=== PATIENT | female | born 1955 | race Caucasian/White ===

== ENCOUNTER 2021-03-05 12:23 | Inpatient (IN) | payer MEDICAID ==
[~2021-03-05] VITALS: Ht 162.6 cm; Wt 54.4 kg
[2021-03-05] MEDS ORDERED: SODIUM CHLORIDE 0.9% 1,000 ML IV ONE (13:15)
[2021-03-05 13:34] LABS: BASOPHILS % 0.4 % (0.0-2.0); EOSINOPHILS % 0.5 % (0.0-5.0); HEMATOCRIT. 39.7 % (36.0-48.0); HEMOGLOBIN. 13.1 g/dL (12.0-16.0); LYMPHOCYTES % 13.3 % (20.0-50.0); MEAN CORPUSCULAR HEMOGLOBIN 27.6 pg (28.0-32.0); MEAN CORPUSCULAR VOLUME 83.7 fL (81.0-99.0); MEAN PLATELET VOLUME 8.2 fl (7.4-10.4); MONOCYTES % 5.2 % (2.0-8.0); NEUTROPHILS % 80.6 % (40.0-76.0); PLATELET 495 x1000/uL (130-400); RED BLOOD CELL COUNT 4.74 mill/uL (4.2-5.4); RED CELL DISTRIBUTION WIDTH 15.5 % (11.6-14.6)
[2021-03-05 13:40] LABS: CHLORIDE 100 mEq/L (98-107)
[2021-03-05 13:45] LABS: INR 0.9; PROTHROMBIN TIME 9.8 sec (9.6-11.0)
[2021-03-05] MEDS ORDERED: ASPIRIN 325MG EC TABLET PO ONE (14:15)
[2021-03-05] MEDS ORDERED: CEFTRIAXONE 1 G PREMIX 50 ML IV ONE (14:30)
[2021-03-05 15:11] LABS: CLARITY URINE TURBID (CLEAR); COLOR URINE YELLOW (YELLOW); KETONES URINE NEGATIVE (NEGATIVE); LEUKOCYTE ESTERASE URINE 3+ (NEGATIVE); NITRITE URINE POSITIVE (NEGATIVE); OCCULT BLOOD URINE 2+ (NEGATIVE); PROTEIN URINE 1+ (NEGATIVE); SPECIFIC GRAVITY URINE 1.022 (1.005-1.030); UROBILINOGEN URINE 0.2 E.U./dL (0.2-1.0)
[2021-03-05 17:00] VITALS: BP 125/75
[2021-03-05] MEDS ORDERED: DEXTROSE 50% WATER 50ML SYRINGE IV PRN ×2 (17:15)
[2021-03-05] MEDS ORDERED: ACETAMINOPHEN 325MG TABLET PO PRN ×2 (17:30→20:15)
[2021-03-05] MEDS ORDERED: AMLO10TA80 MT (17:43)
[2021-03-05] MEDS ORDERED: CLON1PAT12 TP (17:43)
[2021-03-05] MEDS ORDERED: METF-415 MT (17:43)
[2021-03-05] MEDS ORDERED: LORA-249 MT (17:43)
[2021-03-05 18:05] VITALS: BP 125/75
[2021-03-05] MEDS: ENOXAPARIN 40MG/0.4ML SYR SUBCUT SCH (18:56)
[2021-03-05] MEDS: INSULIN LISPRO 100 UNITS/ML SUBCUT SCH ×2 (19:01→21:00)
[2021-03-05 20:00] VITALS: BP 126/80
[2021-03-05] MEDS ORDERED: DOCUSATE SODIUM 100MG CAPSULE PO PRN (20:15)
[2021-03-05] MEDS ORDERED: NITROGLYCERIN 0.4MG TABLET SL SL PRN (20:15)
[2021-03-05] MEDS ORDERED: MAGNESIUM/ALUMINUM HYDROXIDE/SIMETHICONE 30ML UDC PO PRN (20:15)
[2021-03-05] MEDS ORDERED: IPRATROPIUM/ALBUTEROL 0.5-3(2.5)MG/3ML NEB NEB PRN (20:15)
[2021-03-05] MEDS ORDERED: GUAIFENESIN 200MG/10ML SUGAR FREE UDC PO PRN (20:15)
[2021-03-05] MEDS ORDERED: ONDANSETRON HCL 4MG/2ML INJ IV PRN (20:15)
[2021-03-05 20:50] LABS: T4 FREE 1.47 ng/dL (0.76-1.46)
[2021-03-05] MEDS: ASCORBIC ACID 500 MG TABLET PO SCH (21:04)
[2021-03-05] MEDS: FAMOTIDINE 20MG TABLET PO SCH (21:05)
[2021-03-05 21:14] LABS: VITAMIN B12 SERUM > 2000.0 pg/mL (211-911)
[2021-03-05] MEDS: BLOOD SUGAR DIAGNOSTIC STRIP TEST SCH (21:37)
[2021-03-05 21:50] LABS: *AMPHETAMINES SCREEN URINE NEGATIVE (NEGATIVE); *BARBITURATES SCREEN URINE NEGATIVE (NEGATIVE); *BENZODIAZEPINES SCREEN URINE NEGATIVE (NEGATIVE); *COCAINE SCREEN URINE NEGATIVE (NEGATIVE); METHADONE URINE SCREEN NEGATIVE (NEGATIVE); OPIATES URINE SCREEN NEGATIVE (NEGATIVE)
[2021-03-05 21:51] LABS: CANNABINOID URINE SCREEN NEGATIVE (NEGATIVE); PHENCYCLIDINE URINE SCREEN NEGATIVE (NEGATIVE)
[2021-03-05 22:00] VITALS: BP 124/78
[2021-03-05 22:06] LABS: CREATINE KINASE 19 IU/L (26-192)
[2021-03-05 22:07] LABS: CREATINE KINASE MB FRACTION < 1.0 ng/mL (0.5-3.6)
[2021-03-06] VITALS (8 sets, daily range): BP systolic 137–170; BP diastolic 66–80
[2021-03-06 06:15] LABS: CHLORIDE 105 mEq/L (98-107)
[2021-03-06 06:23] LABS: BASOPHILS % 0.6 % (0.0-2.0); EOSINOPHILS % 1.3 % (0.0-5.0); HEMATOCRIT. 37.3 % (36.0-48.0); HEMOGLOBIN. 12.6 g/dL (12.0-16.0); LYMPHOCYTES % 20.9 % (20.0-50.0); MEAN CORPUSCULAR HEMOGLOBIN 28.4 pg (28.0-32.0); MEAN CORPUSCULAR VOLUME 84.2 fL (81.0-99.0); MEAN PLATELET VOLUME 8.2 fl (7.4-10.4); MONOCYTES % 5.9 % (2.0-8.0); NEUTROPHILS % 71.3 % (40.0-76.0); PLATELET 400 x1000/uL (130-400); RED BLOOD CELL COUNT 4.43 mill/uL (4.2-5.4); RED CELL DISTRIBUTION WIDTH 15.3 % (11.6-14.6)
[2021-03-06 06:26] LABS: AMYLASE 22 IU/L (25-115); PHOSPHORUS 3.7 mg/dL (2.5-4.9)
[2021-03-06 06:27] LABS: LDL CHOLESTEROL 112 mg/dL (5-100)
[2021-03-06 06:28] LABS: CREATINE KINASE 17 IU/L (26-192)
[2021-03-06 06:29] LABS: CREATINE KINASE MB FRACTION < 1.0 ng/mL (0.5-3.6)
[2021-03-06 06:30] LABS: HDL CHOLESTEROL 55 mg/dL (40-59)
[2021-03-06] MEDS: BLOOD SUGAR DIAGNOSTIC STRIP TEST SCH ×4 (06:55→21:21)
[2021-03-06] MEDS: INSULIN LISPRO 100 UNITS/ML SUBCUT SCH ×4 (07:03→21:22)
[2021-03-06] MEDS: FAMOTIDINE 20MG TABLET PO SCH ×2 (09:08→21:21)
[2021-03-06] MEDS: ASCORBIC ACID 500 MG TABLET PO SCH ×2 (09:08→21:21)
[2021-03-06] MEDS: CLOPIDOGREL 75MG TABLET PO SCH (09:09)
[2021-03-06] MEDS: AMLODIPINE 10MG TABLET PO SCH (09:09)
[2021-03-06] MEDS: ZINC SULFATE 220 MG ( 50 ) CAPSULE PO SCH (09:09)
[2021-03-06] MEDS: CEFTRIAXONE 1,000 MG in DEXTROSE 5% WATER 50 ML IV SCH (15:20)
[2021-03-06] MEDS: ENOXAPARIN 40MG/0.4ML SYR SUBCUT SCH (18:40)
[2021-03-06] MEDS: ZOLPIDEM TARTRATE 5MG TABLET PO PRN (21:21)
[2021-03-07] VITALS: BP 143/68
[2021-03-07 04:00] VITALS: BP 136/94
[2021-03-07] MEDS: BLOOD SUGAR DIAGNOSTIC STRIP TEST SCH ×4 (05:21→21:00)
[2021-03-07] MEDS: INSULIN LISPRO 100 UNITS/ML SUBCUT SCH ×4 (06:20→21:55)
[2021-03-07 08:00] VITALS: BP 151/72
[2021-03-07] MEDS: ZINC SULFATE 220 MG ( 50 ) CAPSULE PO SCH (08:50)
[2021-03-07] MEDS: AMLODIPINE 10MG TABLET PO SCH (08:50)
[2021-03-07] MEDS: CLOPIDOGREL 75MG TABLET PO SCH (08:50)
[2021-03-07] MEDS: FAMOTIDINE 20MG TABLET PO SCH ×2 (08:50→21:50)
[2021-03-07] MEDS: ASCORBIC ACID 500 MG TABLET PO SCH ×2 (08:50→21:50)
[2021-03-07] MEDS: ACETAMINOPHEN 325MG TABLET PO PRN (10:47)
[2021-03-07] MEDS: LORAZEPAM 0.5MG TABLET PO PRN (10:52)
[2021-03-07 12:00] VITALS: BP 149/67
[2021-03-07] MEDS: CEFTRIAXONE 1,000 MG in DEXTROSE 5% WATER 50 ML IV SCH (14:50)
[2021-03-07 16:00] VITALS: BP 164/74
[2021-03-07] MEDS: CLONIDINE 0.1MG TABLET PO PRN (17:08)
[2021-03-07] MEDS: ENOXAPARIN 40MG/0.4ML SYR SUBCUT SCH (17:08)
[2021-03-07 20:00] VITALS: BP 100/58
[2021-03-07] MEDS: ZOLPIDEM TARTRATE 5MG TABLET PO PRN (21:50)
[2021-03-08] VITALS: BP 102/60
[2021-03-08 04:00] VITALS: BP 94/42
[2021-03-08] MEDS: INSULIN LISPRO 100 UNITS/ML SUBCUT SCH ×4 (06:31→22:32)
[2021-03-08] MEDS: BLOOD SUGAR DIAGNOSTIC STRIP TEST SCH ×4 (06:31→21:00)
[2021-03-08 08:00] VITALS: BP 143/63
[2021-03-08] MEDS: FAMOTIDINE 20MG TABLET PO SCH ×2 (09:07→22:33)
[2021-03-08] MEDS: CLOPIDOGREL 75MG TABLET PO SCH (09:08)
[2021-03-08] MEDS: ZINC SULFATE 220 MG ( 50 ) CAPSULE PO SCH (09:08)
[2021-03-08] MEDS: ASCORBIC ACID 500 MG TABLET PO SCH ×2 (09:08→22:33)
[2021-03-08] MEDS: AMLODIPINE 10MG TABLET PO SCH (09:08)
[2021-03-08] MEDS: LORAZEPAM 0.5MG TABLET PO PRN (09:51)
[2021-03-08 12:00] VITALS: BP 119/77
[2021-03-08 16:00] VITALS: BP 110/70
[2021-03-08] MEDS: CEFTRIAXONE 1,000 MG in DEXTROSE 5% WATER 50 ML IV SCH (16:02)
[2021-03-08] MEDS: ACETAMINOPHEN 325MG TABLET PO PRN (16:02)
[2021-03-08] MEDS: ENOXAPARIN 40MG/0.4ML SYR SUBCUT SCH (17:17)
[2021-03-08 20:00] VITALS: BP 150/67
[2021-03-08] MEDS: ZOLPIDEM TARTRATE 5MG TABLET PO PRN (22:33)
[2021-03-09] VITALS: BP 121/70
[2021-03-09 04:00] VITALS: BP 147/57
[2021-03-09] MEDS: BLOOD SUGAR DIAGNOSTIC STRIP TEST SCH ×4 (07:02→21:00)
[2021-03-09] MEDS: INSULIN LISPRO 100 UNITS/ML SUBCUT SCH ×4 (07:04→21:36)
[2021-03-09 08:00] VITALS: BP 135/65
[2021-03-09] MEDS: FAMOTIDINE 20MG TABLET PO SCH ×2 (09:37→21:36)
[2021-03-09] MEDS: AMLODIPINE 10MG TABLET PO SCH (09:37)
[2021-03-09] MEDS: ZINC SULFATE 220 MG ( 50 ) CAPSULE PO SCH (09:37)
[2021-03-09] MEDS: ASCORBIC ACID 500 MG TABLET PO SCH ×2 (09:37→21:36)
[2021-03-09] MEDS: CLOPIDOGREL 75MG TABLET PO SCH (09:37)
[2021-03-09] MEDS: LORAZEPAM 0.5MG TABLET PO PRN (09:45)
[2021-03-09 12:00] VITALS: BP 155/65
[2021-03-09] MEDS: ACETAMINOPHEN 325MG TABLET PO PRN ×2 (12:15→21:37)
[2021-03-09] MEDS: CEFTRIAXONE 1,000 MG in DEXTROSE 5% WATER 50 ML IV SCH (14:12)
[2021-03-09 16:00] VITALS: BP 135/63
[2021-03-09] MEDS: ENOXAPARIN 40MG/0.4ML SYR SUBCUT SCH (17:19)
[2021-03-09 20:31] VITALS: BP 162/78
[2021-03-09] MEDS: ZOLPIDEM TARTRATE 5MG TABLET PO PRN (21:36)
[2021-03-09] MEDS: CLONIDINE 0.1MG TABLET PO PRN (21:40)
[2021-03-10 00:04] VITALS: BP 116/57
[2021-03-10 04:00] VITALS: BP 146/55
[2021-03-10] MEDS: BLOOD SUGAR DIAGNOSTIC STRIP TEST SCH ×3 (06:35→16:45)
[2021-03-10] MEDS: INSULIN LISPRO 100 UNITS/ML SUBCUT SCH ×3 (06:39→17:15)
[2021-03-10 08:00] VITALS: BP 132/70
[2021-03-10] MEDS: ASCORBIC ACID 500 MG TABLET PO SCH (08:46)
[2021-03-10] MEDS: FAMOTIDINE 20MG TABLET PO SCH (08:46)
[2021-03-10] MEDS: CLOPIDOGREL 75MG TABLET PO SCH (08:46)
[2021-03-10] MEDS: ZINC SULFATE 220 MG ( 50 ) CAPSULE PO SCH (08:46)
[2021-03-10] MEDS: AMLODIPINE 10MG TABLET PO SCH (08:47)
[2021-03-10] MEDS ORDERED: FLUCONAZOLE 200MG/100ML PREMIX IV ONE (09:30)
[2021-03-10] MEDS ORDERED: MAGNESIUM OXIDE 400MG TABLET PO NR (10:30)
[2021-03-10] MEDS ORDERED: FLUCONAZOLE 200 MG/100ML BAG 100 ML IV SCH (11:00)
[2021-03-10] MEDS: LORAZEPAM 0.5MG TABLET PO PRN (12:40)
[2021-03-10 14:48] VITALS: BP 150/73
[2021-03-10] MEDS: ENOXAPARIN 40MG/0.4ML SYR SUBCUT SCH (18:00)
== END 2021-03-10 18:00 | disposition home or self-care (01) | DRG 720 ==
LOC: ER 12:23 → 5WST 14:46 → EDBEDREQ 14:52 → ENRESERV 15:07
PROVIDERS: ADMIT Internal Medicine; ATTEND Internal Medicine
DX: A41.9 Sepsis, unspecified organism (principal); G82.20 Paraplegia, unspecified; L89.306 Pressure-induced deep tissue damage of unspecified buttock; E87.1 Hypo-osmolality and hyponatremia; L89.896 Pressure-induced deep tissue damage of other site; N39.0 Urinary tract infection, site not specified; R29.810 Facial weakness; E11.9 Type 2 diabetes mellitus without complications; I10 Essential (primary) hypertension; Z74.01 Bed confinement status; Z79.02 Long term (current) use of antithrombotics/antiplatelets; Z79.4 Long term (current) use of insulin; Z79.899 Other long term (current) drug therapy; I69.954 Hemiplegia and hemiparesis following unspecified cerebrovascular disease affecting left non-dominant side; R33.9 Retention of urine, unspecified; Z96.0 Presence of urogenital implants
CPT/HCPCS: 36415; 70551; 71045; 80053; 80061; 80305; 81003; 82040; 82150; 82550; 82553; 82607; 82746; 82962; 83036; 83540; 83550; 83735; 84100; 84134; 84439; 84443; 84484; 85025; 87106; 93005; 93970; 97112; 97162; 97166; 97530; 99291; A6261; J0696; J1450; J1650; J1815; J7030; J7060; A4315

== ENCOUNTER 2021-11-30 13:38 | Inpatient (IN) | payer MEDICARE, MEDICAID ==
[~2021-11-30] VITALS: Ht 157.5 cm; Wt 69.4 kg
[~2021-11-30 13:38] MED LIST: AMLO10TA80 MT; CLON1PAT12 TP; LORA-249 MT; METF-415 MT
[2021-11-30 14:42] LABS: BASOPHILS % 0.7 % (0.0-2.0); EOSINOPHILS % 0.6 % (0.0-5.0); HEMATOCRIT. 38.1 % (36.0-48.0); HEMOGLOBIN. 12.6 g/dL (12.0-16.0); LYMPHOCYTES % 21.5 % (20.0-50.0); MEAN CORPUSCULAR HEMOGLOBIN 27.7 pg (28.0-32.0); MEAN CORPUSCULAR VOLUME 83.8 fL (81.0-99.0); MONOCYTES % 5.2 % (2.0-8.0); PLATELET 300 x1000/uL (130-400); RED BLOOD CELL COUNT 4.55 mill/uL (4.2-5.4); RED CELL DISTRIBUTION WIDTH 13.5 % (11.6-14.6)
[2021-11-30 14:52] LABS: CHLORIDE 107 mEq/L (98-107)
[2021-11-30 14:56] LABS: ETHANOL BLOOD < 10 mg/dL
[2021-11-30 15:00] LABS: CREATINE KINASE 60 IU/L (26-192)
[2021-11-30] MEDS ORDERED: DEXTROSE 50% WATER 50ML SYRINGE IV PRN (17:00)
[2021-11-30] MEDS ORDERED: CLONIDINE 0.1MG TABLET PO PRN (17:00)
[2021-11-30] MEDS ORDERED: GUAIFENESIN 200MG/10ML SUGAR FREE UDC PO PRN (17:00)
[2021-11-30] MEDS ORDERED: ACETAMINOPHEN 325MG TABLET PO PRN (17:00)
[2021-11-30] MEDS ORDERED: DOCUSATE SODIUM 100MG CAPSULE PO PRN (17:00)
[2021-11-30] MEDS ORDERED: IPRATROPIUM/ALBUTEROL 0.5-3(2.5)MG/3ML NEB HHN PRN (17:00)
[2021-11-30] MEDS ORDERED: LORAZEPAM 2MG/ML CPJ IV PRN (17:00)
[2021-11-30] MEDS ORDERED: HYDRALAZINE 20MG/ML VIAL IV PRN (17:00)
[2021-11-30] MEDS ORDERED: DIPHENHYDRAMINE 50MG/ML VIAL IV PRN (17:00)
[2021-11-30] MEDS ORDERED: HYDROCODONE/ACETAMINOPHEN 5/325MG TABLET PO PRN (17:00)
[2021-11-30] MEDS ORDERED: MAGNESIUM/ALUMINUM HYDROXIDE/SIMETHICONE 30ML UDC PO PRN (17:00)
[2021-11-30] MEDS ORDERED: MORPHINE SULFATE 2 MG/ML CPJ (NOT FOR IM USE) IV PRN (17:00)
[2021-11-30] MEDS ORDERED: ONDANSETRON HCL 4MG/2ML INJ IV PRN (17:00)
[2021-11-30] MEDS: BLOOD SUGAR DIAGNOSTIC STRIP TEST SCH ×2 (17:43→21:06)
[2021-11-30] MEDS: ENOXAPARIN 40MG/0.4ML SYR SUBCUT SCH (17:50)
[2021-11-30] MEDS ORDERED: ASPIRIN 81MG TABLET PO ONE (20:00)
[2021-11-30 20:39] LABS: CLARITY URINE CLEAR (CLEAR); COLOR URINE YELLOW (YELLOW); KETONES URINE NEGATIVE (NEGATIVE); LEUKOCYTE ESTERASE URINE NEGATIVE (NEGATIVE); NITRITE URINE NEGATIVE (NEGATIVE); OCCULT BLOOD URINE NEGATIVE (NEGATIVE); PH URINE 6.5 (4.5-8.0); PROTEIN URINE NEGATIVE (NEGATIVE); SPECIFIC GRAVITY URINE 1.012 (1.005-1.030); UROBILINOGEN URINE 0.2 E.U./dL (0.2-1.0)
[2021-11-30 20:59] LABS: *AMPHETAMINES SCREEN URINE NEGATIVE (NEGATIVE); *BARBITURATES SCREEN URINE NEGATIVE (NEGATIVE); *BENZODIAZEPINES SCREEN URINE NEGATIVE (NEGATIVE); CANNABINOID URINE SCREEN PRESUMTIVE POSITIVE (NEGATIVE); PHENCYCLIDINE URINE SCREEN NEGATIVE (NEGATIVE)
[2021-11-30 21:00] LABS: *COCAINE SCREEN URINE NEGATIVE (NEGATIVE); METHADONE URINE SCREEN NEGATIVE (NEGATIVE); OPIATES URINE SCREEN NEGATIVE (NEGATIVE)
[2021-11-30] MEDS: SODIUM CHLORIDE 0.9% INJ 3ML FLUSH IVF SCH (22:00)
[2021-11-30 22:12] LABS: CREATINE KINASE 45 IU/L (26-192); CREATINE KINASE MB FRACTION < 1.0 ng/mL (0.5-3.6)
[2021-12-01 04:10] VITALS: BP 148/93
[2021-12-01 04:26] LABS: BASOPHILS % 0.5 % (0.0-2.0); EOSINOPHILS % 1.8 % (0.0-5.0); HEMATOCRIT. 35.4 % (36.0-48.0); HEMOGLOBIN. 11.6 g/dL (12.0-16.0); MEAN CORPUSCULAR HEMOGLOBIN 27.7 pg (28.0-32.0); MEAN CORPUSCULAR VOLUME 84.4 fL (81.0-99.0); MEAN PLATELET VOLUME 8.6 fl (7.4-10.4); MONOCYTES % 7.1 % (2.0-8.0); NEUTROPHILS % 49.6 % (40.0-76.0); PLATELET 300 x1000/uL (130-400); RED CELL DISTRIBUTION WIDTH 13.3 % (11.6-14.6)
[2021-12-01] MEDS ORDERED: PRAV80TA21 MT (04:56)
[2021-12-01] MEDS ORDERED: ASPI-1497 MT (04:57)
[2021-12-01] MEDS ORDERED: PARO10TA87 MT (05:00)
[2021-12-01 05:25] LABS: CHLORIDE 108 mEq/L (98-107)
[2021-12-01 05:36] LABS: CREATINE KINASE 35 IU/L (26-192)
[2021-12-01 05:38] LABS: CREATINE KINASE MB FRACTION < 1.0 ng/mL (0.5-3.6)
[2021-12-01] MEDS: BLOOD SUGAR DIAGNOSTIC STRIP TEST SCH ×4 (06:42→21:31)
[2021-12-01] MEDS: SODIUM CHLORIDE 0.9% INJ 3ML FLUSH IVF SCH ×3 (06:44→21:36)
[2021-12-01] MEDS: INSULIN LISPRO 100 UNITS/ML SUBCUT SCH ×4 (07:50→21:48)
[2021-12-01 08:07] VITALS: BP 143/47
[2021-12-01] MEDS: ASPIRIN 81MG EC TABLET PO SCH (10:21)
[2021-12-01 11:42] VITALS: BP 143/65
[2021-12-01] MEDS ORDERED: PNEUMOCOCCAL 23-VAL P-SAC VAC 0.5 ML IM ONE (15:00)
[2021-12-01 16:05] VITALS: BP 147/63
[2021-12-01] MEDS: ENOXAPARIN 40MG/0.4ML SYR SUBCUT SCH (18:10)
[2021-12-01] MEDS ORDERED: CLONIDINE 0.1MG TABLET PO PRN (18:45)
[2021-12-01 20:00] VITALS: BP 158/72
[2021-12-02] VITALS: BP 127/67
[2021-12-02 04:00] VITALS: BP 122/62
[2021-12-02] MEDS: SODIUM CHLORIDE 0.9% INJ 3ML FLUSH IVF SCH ×3 (05:36→21:50)
[2021-12-02] MEDS: BLOOD SUGAR DIAGNOSTIC STRIP TEST SCH ×4 (06:28→21:49)
[2021-12-02 08:00] VITALS: BP 139/63
[2021-12-02] MEDS: INSULIN LISPRO 100 UNITS/ML SUBCUT SCH ×4 (08:00→21:55)
[2021-12-02] MEDS: ASPIRIN 81MG EC TABLET PO SCH (10:25)
[2021-12-02 12:00] VITALS: BP 128/60
[2021-12-02 16:00] VITALS: BP 133/62
[2021-12-02] MEDS: ENOXAPARIN 40MG/0.4ML SYR SUBCUT SCH (19:54)
[2021-12-02 20:00] VITALS: BP 148/71
[2021-12-03] VITALS: BP 118/58
[2021-12-03 04:00] VITALS: BP 130/57
[2021-12-03] MEDS: SODIUM CHLORIDE 0.9% INJ 3ML FLUSH IVF SCH ×3 (06:00→21:48)
[2021-12-03] MEDS: BLOOD SUGAR DIAGNOSTIC STRIP TEST SCH ×4 (07:24→21:00)
[2021-12-03] MEDS: INSULIN LISPRO 100 UNITS/ML SUBCUT SCH ×4 (07:24→21:00)
[2021-12-03 08:00] VITALS: BP 131/59
[2021-12-03] MEDS: ASPIRIN 81MG EC TABLET PO SCH (09:43)
[2021-12-03] MEDS ORDERED: NALOXONE HCL 0.4MG/ML VIAL IV PRN (15:15)
[2021-12-03] MEDS: ENOXAPARIN 40MG/0.4ML SYR SUBCUT SCH (17:42)
[2021-12-03 20:00] VITALS: BP 154/88
[2021-12-04] VITALS: BP 150/55
[2021-12-04 04:00] VITALS: BP 127/54
[2021-12-04] MEDS: SODIUM CHLORIDE 0.9% INJ 3ML FLUSH IVF SCH ×3 (05:04→21:46)
[2021-12-04] MEDS: INSULIN LISPRO 100 UNITS/ML SUBCUT SCH ×4 (07:50→21:00)
[2021-12-04] MEDS: BLOOD SUGAR DIAGNOSTIC STRIP TEST SCH ×4 (08:09→21:00)
[2021-12-04 08:18] VITALS: BP 129/52
[2021-12-04] MEDS: ASPIRIN 81MG EC TABLET PO SCH (09:10)
[2021-12-04] MEDS ORDERED: MIDAZOLAM HCL 5 MG/5 ML VIAL ONE (09:41)
[2021-12-04] MEDS ORDERED: TETRACAINE/BENZOCAINE/BUTAMBEN 20 GM SPRAY MM ONE (09:41)
[2021-12-04] MEDS ORDERED: FENTANYL CITRATE/PF 50MCG/ML 2ML VIAL ONE (09:41)
[2021-12-04] MEDS ORDERED: LIDOCAINE HCL 2% JELLY 5ML ONE (09:41)
[2021-12-04 11:52] VITALS: BP 154/57
[2021-12-04 15:55] VITALS: BP 136/63
[2021-12-04 18:18] LABS: PROTHROMBIN TIME 10.3 sec (9.6-11.0)
[2021-12-04] MEDS: ENOXAPARIN 80MG/0.8ML SYR SUBCUT SCH (18:33)
[2021-12-04 20:00] VITALS: BP 110/56
[2021-12-05] VITALS: BP 146/68
[2021-12-05 04:00] VITALS: BP 131/64
[2021-12-05] MEDS: ENOXAPARIN 80MG/0.8ML SYR SUBCUT SCH (05:21)
[2021-12-05] MEDS: SODIUM CHLORIDE 0.9% INJ 3ML FLUSH IVF SCH ×2 (05:22→14:40)
[2021-12-05] MEDS: BLOOD SUGAR DIAGNOSTIC STRIP TEST SCH ×2 (05:22→12:20)
[2021-12-05] MEDS: INSULIN LISPRO 100 UNITS/ML SUBCUT SCH ×2 (07:37→14:39)
[2021-12-05 08:00] VITALS: BP 132/53
[2021-12-05] MEDS: ASPIRIN 81MG EC TABLET PO SCH (08:42)
[2021-12-05 12:00] VITALS: BP 138/56
[2021-12-05 12:46] VITALS: BP 135/56
[2021-12-05] MEDS ORDERED: *PATIENT'S OWN MEDICATION STORAGE XX SCH (14:00)
[2021-12-05 16:00] VITALS: BP 150/70
== END 2021-12-05 17:04 | disposition home or self-care (01) | DRG 65 ==
LOC: ER 13:38 → 6WST 16:15 → EDBEDREQ 16:25 → EDBEDREQTM 16:25 → ENRESERV 12-01 02:45
PROVIDERS: ADMIT Internal Medicine; ATTEND Internal Medicine
DX: I63.9 Cerebral infarction, unspecified (principal); G91.9 Hydrocephalus, unspecified; G81.94 Hemiplegia, unspecified affecting left nondominant side; E11.9 Type 2 diabetes mellitus without complications; Z20.822 Contact with and (suspected) exposure to COVID-19; F32.A Depression, unspecified; F12.90 Cannabis use, unspecified, uncomplicated; E78.5 Hyperlipidemia, unspecified; I10 Essential (primary) hypertension; R47.81 Slurred speech; I51.3 Intracardiac thrombosis, not elsewhere classified; Z79.84 Long term (current) use of oral hypoglycemic drugs; Z79.899 Other long term (current) drug therapy; Z79.82 Long term (current) use of aspirin
CPT/HCPCS: 36415; 70551; 71045; 80053; 80061; 80305; 80320; 81003; 82550; 82553; 82962; 83880; 84443; 84484; 85025; 87426; 90732; 92610; 93005; 93306; 93312; 93880; 93970; 97116; 97162; 99285; J1650; J1815; J2250; J3010; G0480